=== PATIENT | male | born 1970 | race Hispanic/Latino ===

== ENCOUNTER 2024-05-31 16:45 | Emergency (ER) | payer BC ==
[~2024-05-31] VITALS: Ht 165.1 cm; Wt 100.2 kg
--- NOTE | 2024-05-31 16:51 | ERN ---
ED Note History of Present Illness Stated Complaint: LT ARM PAIN Chief Complaint: Arm Swelling/Redness Time Seen by MD: 16:48 Dictation: PATIENT IS A 53-YEAR-OLD MALE HERE WITH COMPLAINTS OF LEFT FOREARM SWELLING WITH BRUISING NOTED STATUS POST A SAME LEVEL TRIP FALL ONE WEEK PRIOR TO ARRIVAL. HE IS ON NO BLOOD THINNERS NO OTHER INJURIES, HAS NOT TAKEN ANYTHING FOR PAIN NOR DID HE GO SEE HIS PRIMARY CARE DOCTOR. HE STATES IT MIGHT GO AWAY IF I JUST WAITED LONG ENOUGH Allergies: Coded Allergies: No Known Drug Allergies (Unverified Allergy, Unknown, 05/31/24) Past Medical History PSYCH History: no pertinent psych hx RN Note Reviewed/Agreed w/PFSH: Yes Review of System Dictation CONSTITUTIONAL: NEGATIVE EXCEPT FOR HPI HEAD/FACE: NEGATIVE EXCEPT FOR HPI EENT: NEGATIVE EXCEPT FOR HPI RESPIRATORY: NEGATIVE EXCEPT FOR HPI GASTROINTESTINAL/ABDOMINAL: NEGATIVE EXCEPT FOR HPI GENITOURINARY: NEGATIVE EXCEPT FOR HPI MUSCULOSKELETAL: NEGATIVE EXCEPT FOR HPI LEFT FOREARM PAIN ECCHYMOSIS INTEGUMENTARY: NEGATIVE EXCEPT FOR HPI NEUROLOGICAL/PSYCH: NEGATIVE EXCEPT FOR HPI HEMATOLOGIC/LYMPHATIC: NEGATIVE EXCEPT FOR HPI ALL SYSTEMS NEGATIVE, EXCEPT NOTED ABOVE. 13 POINT REVIEW OF SYSTEMS ASSESSED AND ALL NEGATIVE EXCEPT FOR ABOVE. Initial Vital Sign VS Vital Signs Date Time Temp Pulse Resp B/P (MAP) Pulse Ox O2 Delivery O2 Flow Rate FiO2 05/31/24 16:48 99.7 98 18 141/87 96 Room Air 05/31/24 17:10 0 21 Physical Exam Dictation VITAL SIGNS REVIEWED GENERAL APPEARANCE: ALERT, ORIENTED X 3, MILD ACUTE DISTRESS, WELL DEVELOPED, NOURISHED. HEAD AND FACE: NON-TRAUMATIC. EYES: PERRL, PINK CONJUNCTIVAS, EYELID NO TRAUMA, ANTERIOR CHAMBER WITH ARCUS SENILIS. EARS: PINNAS INTACT AND NO SIGNS OF TRAUMA OR ERYTHEMA EAR CANALS CLEAR AND NO DISCHARGE TM NO ERYTHEMA NOSE: NO DISCHARGE, NO BLEEDING. OROPHARYNX: MOUTH NORMAL, TONGUE PINK, PHARYNX CLEAR,NO ERYTHEMA, TONSILS NO EXUDATES, NO ABSCESSES NOTED, MUCOUS MEMBRANE MOIST NECK: SUPPLE, NON-TENDER, NO THYROMEGALY, NO MASSES, NO JVD, NO BRUITS BREAST:DEFERRED CHEST:NO TENDERNESS, NO CREPITUS, NO PARADOXICAL MOVEMENT, NO RETRACTIONS LUNGS:CLEAR, WELL-VENTILATED, SYMMETRIC, NO RALES, NO WHEEZING, NO RHONCHI, NO STRIDOR, GOOD BREATH SOUNDS BILATERALLY HEART: REGULAR RATE, REGULAR RHYTHM, NO MURMUR, NO GALLOPS VASCULAR: NO PERIPHERAL EDEMA, ABDOMEN: SOFT, POSITIVE BOWEL SOUNDS, NONDISTENDED, NO GUARDING, NONTENDER, NO REBOUND, NO MASSES NO HEPATOMEGALY, NO SPLENOMEGALY, NO COREY'S SIGN, NO HERNIAS. RECTAL: DEFERRED GENITAL: DEFERRED NEUROLOGICAL: NORMAL SPEECH, MOTOR FUNCTION INTACT, SENSORY FUNCTION INTACT MUSCULOSKELETAL: NECK NONTENDER, FULL RANGE OF MOTION, BACK NONTENDER, FULL RANGE OF MOTION, EXTREMITIES: MILD LEFT FOREARM SWELLING TENDERNESS WITH A ECCHYMOSIS NOTED. DISTAL NEUROVASCULAR CMS INTACT SKIN: COLOR PINK, DRY, NO TURGOR, NO RASH, NO LACERATIONS, NO ABRASIONS, NO CONTUSIONS. LYMPHATIC: DEFERRED Results (Laboratory/Radiology) Laboratory/Radiology SEVENTEEN 50, X-RAY OF LEFT WRIST AND FOREARM NEGATIVE. WRIST X-RAY PERFORMED AFTER SHADOWING SEEN ON DISTAL ULNAR DEDICATED WRIST X-RAY DEMONSTRATES NO FRACTURE. Labs Reviewed?: Yes ED Course ED Course Orders Procedure Category Date Status Time Forearm 2vws Lt RAD 05/31/24 Resulted 16:48 Acetaminophen 500mg PHA 05/31/24 Complete Tab (Tylenol 500mg T 17:00 Wrist Comp 3+Vws Lt RAD 05/31/24 Taken 17:25 Current Medications Medications (Trade) Dose Ordered Sig/Ely Route PRN Reason Start Time Stop Time Status Last Admin Dose Admin Acetaminophen (TYLenol 500MG TAB) 1,000 mg ONCE ONCE PO 05/31/24 17:00 05/31/24 17:01 DC 05/31/24 17:09 Vital Signs Date Time Temp Pulse Resp B/P (MAP) Pulse Ox O2 Delivery O2 Flow Rate FiO2 05/31/24 17:10 98.8 78 20 152/63 98 Room Air* 0 21 05/31/24 16:48 99.7 98 18 141/87 96 Room Air SEVENTEEN 50 PATIENT DISCHARGED HOME WITH DIAGNOSIS OF LEFT ARM CONTUSION STATUS POST FALL. TOLD TO FOLLOW UP WITH HIS PRIMARY CARE DOCTOR, ACTIVITY TOLERATED. Medical Decision Making MDM MEDICAL DISCHARGE MAKING BASED ON X-RAYS OF LEFT WRIST AND FOREARM STATUS POST FALL ONE WEEK AGO. NEGATIVE X-RAYS DISCHARGED HOME WITH DIAGNOSIS OF SAME LEVEL FALL AND LEFT FOREARM CONTUSION DX & DISP Disposition: Discharge Departure Impression: Primary Impression: Contusion of left forearm, initial encounter Additional Impression: Fall Condition: Stable Scripts Ibuprofen (Ibuprofen 800 mg Tab) 800 Mg Tab 800 MG PO Q8H PRN for fever or pain, #30 TAB 0 Refills Prov: MYESHA CAPPS NP 05/31/24 Additional Instructions: FOLLOW-UP WITH PRIMARY CARE PROVIDER IN 1 TO 2 DAYS. TAKE MEDICATIONS DIRECTED HERE IN THE EMERGENCY ROOM. OKAY TO CONTINUE HOME MEDICATIONS UNLESS OTHERWISE DISCUSSED DURING YOUR VISIT IN THE EMERGENCY ROOM TODAY. RETURN TO YOUR NEAREST EMERGENCY ROOM IF SYMPTOMS WORSEN OR IF THERE IS NO IMPROVEMENT. CALL 911 IF YOU NEED IMMEDIATE ASSISTANCE. TAKE TYLENOL OR MOTRIN AXOM-[id number] NEEDED AND IF NO CONTRAINDICATIONS ARE PRESENT. INCREASE ORAL HYDRATION. A WOUND CULTURE OR URINE CULTURE WAS ORDERED HERE IN THE [facility] DEPARTMENT PLEASE FOLLOW-UP WITH PRIMARY CARE PROVIDER AND ADVISE THEM TO GET REPEAT PORTS FROM OUR FACILITY. IF YOU HAD ANY DAVID WRAP/SPLINTS THAT WERE APPLIED HERE, PLEASE DO NOT REMOVE THEM UNTIL YOU SEE YOUR PRIMARY CARE OR SPECIALTY. ACTIVITY TOLERATED, TAKE IBUPROFEN NEEDED FOR PAIN, SEE YOUR PRIMARY CARE DOCTOR FOR FOLLOW UP AND MANAGE Time of Disposition: 17:53 I have reviewed the case, and I agree with, Diagnosis and Plan MYESHA CAPPS NP May 31, 2024 16:51
[2024-05-31] MEDS: acetaMINOPHEN 500 MG TABLET PO ONE (17:09)
[2024-05-31 17:10] VITALS: TEMP 98.8
--- NOTE | 2024-05-31 17:40 | HMCIMG ---
Exam Type: FOREARM 2VWS LT Clinical Information: FOREARM PAIN SWELLING WITH ECCHYMOSIS STATUS POST FALL ONE WEEK Comparison: None Findings: The bone examination is unremarkable. No fractures or dislocations are seen. No radiopaque foreign bodies are noted. Soft tissues are preserved. IMPRESSION: Normal examination.
[2024-05-31] MEDS ORDERED: IBUP-2077 PO (17:54)
--- NOTE | 2024-05-31 17:57 | HMCIMG ---
Exam Type: WRIST COMP 3+VWS LT Clinical Information: LEFT WRIST PAIN STATUS POST FALL ONE WEEK AGO Comparison: None Findings: The bone examination is unremarkable. No fractures or dislocations are seen. No radiopaque foreign bodies are noted. Soft tissues are preserved. IMPRESSION: Normal examination.
[2024-05-31 18:01] VITALS: BP 147/68; PULSE 71; RESP 18; O2SAT 98
== END 2024-05-31 18:10 | disposition home or self-care (01) ==
LOC: EDH 16:45
DX: S50.12XA Contusion of left forearm, initial encounter (principal); W18.39XA Other fall on same level, initial encounter; Y93.89 Activity, other specified; Y92.89 Other specified places as the place of occurrence of the external cause; Y99.8 Other external cause status
CPT/HCPCS: 73090; 73110; 99283